=== PATIENT | female | born 1990 | race Caucasian/White ===

== ENCOUNTER 2017-06-06 21:00 | Emergency (ER) | payer OTHER ==
--- NOTE | 2017-06-06 22:23 | ERPHSYRPT ---
- History of Present Illness Time Seen by Provider: 06/06/17 21:30 Source: patient Exam Limitations: clinical condition Patient Subjective Stated Complaint: having headache x 4 weeks, Triage Nursing Assessment: gait is steady ambulates by self, skin warm dry and intact, pulses equal bilateral radus, pupils perrla3, and tracking well, no other complaints noted no loss of consciousness, no falls or trauma Physician History: PATIENT WITH A HISTORY OF SUBSTANCE ABUSE RECENTLY HAD SUBOXONE SWITCHED TO BUPRENORHINE 3 DAYS AGO AND NOW HAS DIZZINESS, DENIES HEADACHE PALPITATIONS, NAUSEA OR EMESIS. LAST MENSTRUAL PERIOD 04/17/17 RECENTLY DIAGNOSED WITH , DENIES ABDOMINAL PAIN, VAGINAL BLEEDING. Timing/Duration: today Severity: mild Associated Symptoms: denies symptoms Allergies/Adverse Reactions: No Known Drug Allergies Allergy (Verified 07/13/16 00:54) Home Medications: Buprenorphine HCl 1 tab SL BID 06/06/17 [History] Hx Tetanus, Diphtheria Vaccination/Date Given: Yes Hx Influenza Vaccination/Date Given: No Hx Pneumococcal Vaccination/Date Given: No Immunizations Up to Date: Yes - Review of Systems Constitutional: No Fever, No Chills Eyes: No Symptoms Ears, Nose, & Throat: No Symptoms Respiratory: No Symptoms, No Cough, No Dyspnea Cardiac: No Symptoms, No Chest Pain, No Edema, No Syncope Abdominal/Gastrointestinal: No Symptoms, No Abdominal Pain, No Nausea, No Vomiting, No Diarrhea Genitourinary Symptoms: Incontinence, No Dysuria Musculoskeletal: No Symptoms, No Back Pain, No Neck Pain Skin: No Rash Neurological: No Dizziness, No Focal Weakness, No Sensory Changes Psychological: No Symptoms Endocrine: No Symptoms All Other Systems: Reviewed and Negative - Past Medical History Pertinent Past Medical History: No Neurological History: Migraines ENT History: No Pertinent History Cardiac History: No Pertinent History Respiratory History: No Pertinent History Endocrine Medical History: Diabetes Type II Musculoskeletal History: No Pertinent History GI Medical History: No Pertinent History History: No Pertinent History Psycho-Social History: No Pertinent History Female Reproductive Disorders: No Pertinent History - Past Surgical History Past Surgical History: No Neuro Surgical History: No Pertinent History Cardiac: No Pertinent History Respiratory: No Pertinent History Gastrointestinal: No Pertinent History Genitourinary: No Pertinent History Musculoskeletal: No Pertinent History Female Surgical History: No Pertinent History - Social History Smoking Status: Never smoker How long have you smoked: 10 Exposure to second hand smoke: Yes Drug Use: none Patient Lives Alone: No Significant Family History: no pertinent family hx - Female History Hx Last Menstrual Period: 04/12/17 - Nursing Vital Signs Nursing Vital Signs: Initial Vital Signs Temperature 98.0 F 06/06/17 21:21 Pulse Rate 85 06/06/17 21:21 Respiratory Rate 18 06/06/17 21:21 Blood Pressure 127/79 06/06/17 21:21 O2 Sat by Pulse Oximetry 99 06/06/17 21:21 Pain Scale Pain Intensity 0 - Physical Exam General Appearance: no apparent distress, alert Eye Exam: PERRL/EOMI, eyes nml inspection Ears, Nose, Throat Exam: normal ENT inspection, TMs normal, pharynx normal, moist mucous membranes Neck Exam: normal inspection, non-tender, supple, full range of motion Respiratory Exam: normal breath sounds, lungs clear, No respiratory distress Cardiovascular Exam: regular rate/rhythm, normal heart sounds, normal peripheral pulses Gastrointestinal/Abdomen Exam: soft, normal bowel sounds, No tenderness, No mass Back Exam: normal inspection, normal range of motion, No CVA tenderness, No vertebral tenderness Extremity Exam: normal inspection, normal range of motion, pelvis stable Neurologic Exam: alert, oriented x 3, cooperative, normal mood/affect, nml cerebellar function, nml station & gait, sensation nml, No motor deficits Skin Exam: normal color, warm, dry, No rash Lymphatic Exam: No adenopathy SpO2 Interpretation: normal SpO2: 100 Oxygen Delivery: Room Air - Course EKG Interpreted by Me: RATE, Sinus Rhythm, NORMAL AXIS Ordered Tests: Active Orders 24 hr Category Date Time Status Clean Catch Urine Specimen STAT Care 06/06/17 22:11 Active EKG-ER Only STAT Care 06/06/17 22:10 Active BMP Stat Lab 06/06/17 22:25 Results CBC W DIFF Stat Lab 06/06/17 22:25 Completed HCG,QUALITATIVE URINE Stat Lab 06/06/17 22:30 Completed UA W/ MICROSCOPIC Stat Lab 06/06/17 22:25 Completed Lab/Rad Data: Laboratory Result Diagrams 06/06/17 22:25 06/06/17 22:25 Laboratory Results 06/06/17 06/06/17 06/06/17 Range/Units 22:30 22:25 22:25 WBC (4.0-10.5) K/mm3 RBC (4.1-5.4) M/mm3 Hgb (12.0-16.0) gm/dl Hct (35-47) % MCV (78-100) fl MCH (26-32) pg MCHC (32-36) g/dl RDW (11.5-14.0) % Plt Count (150-450) K/mm3 MPV (6-9.5) fl Gran % (36.0-66.0) % Lymphocytes % (24.0-44.0) % Monocytes % (0.0-12.0) % Eosinophils % (0.00-5.0) % Basophils % (0.0-0.4) % Basophils # (0-0.4) Sodium 136 (136-145) mEq/L Potassium 4.7 (3.5-5.1) mEq/L Chloride 102 (98-107) mEq/L Carbon Dioxide 29.2 (21-32) mEq/L Anion Gap 9.1 (5-15) MEQ/L BUN Pending Creatinine 0.75 (0.55-1.30) mg/dl Estimated GFR > 60 ML/MIN Glucose 107 (70-110) MG/DL Calcium 9.0 (8.5-10.1) mg/dL Ur Collection Type CLEAN CATCH Urine Color YELLOW (YELLOW) Urine Appearance CLEAR (CLEAR) Urine pH 5.0 (5-6) Ur Specific Coldiron 1.025 (1.005-1.025) Urine Protein NEGATIVE (Negative) Urine Ketones NEGATIVE (NEGATIVE) Urine Blood NEGATIVE (0-5) Onur/ul Urine Nitrite POSITIVE (NEGATIVE) Urine Bilirubin NEGATIVE (NEGATIVE) Urine Urobilinogen NORMAL (0-1) mg/dL Ur Leukocyte Esterase NEGATIVE (NEGATIVE) Urine Microscopic WBC 2-5 (0-5) /HPF Ur Epithelial Cells FEW (FEW) /HPF Urine Bacteria MODERATE (NEGATIVE) /HPF Urine Glucose NEGATIVE (NEGATIVE) mg/dL Urine HCG, Qual POSITIVE (Negative) Specimen Received 06/06/17222906/06/17 Range/Units 22:25 WBC 8.4 (4.0-10.5) K/mm3 RBC 4.34 (4.1-5.4) M/mm3 Hgb 13.0 (12.0-16.0) gm/dl Hct 39.5 (35-47) % MCV 91.0 (78-100) fl MCH 30.0 (26-32) pg MCHC 32.9 (32-36) g/dl RDW 14.0 (11.5-14.0) % Plt Count 297 (150-450) K/mm3 MPV 10.0 H (6-9.5) fl Gran % 46.1 (36.0-66.0) % Lymphocytes % 43.9 (24.0-44.0) % Monocytes % 4.0 (0.0-12.0) % Eosinophils % 5.5 H (0.00-5.0) % Basophils % 0.5 (0.0-0.4) % Basophils # 0.04 (0-0.4) Sodium (136-145) mEq/L Potassium (3.5-5.1) mEq/L Chloride (98-107) mEq/L Carbon Dioxide (21-32) mEq/L Anion Gap (5-15) MEQ/L BUN Creatinine (0.55-1.30) mg/dl Estimated GFR ML/MIN Glucose (70-110) MG/DL Calcium (8.5-10.1) mg/dL Ur Collection Type Urine Color (YELLOW) Urine Appearance (CLEAR) Urine pH (5-6) Ur Specific Coldiron (1.005-1.025) Urine Protein (Negative) Urine Ketones (NEGATIVE) Urine Blood (0-5) Onur/ul Urine Nitrite (NEGATIVE) Urine Bilirubin (NEGATIVE) Urine Urobilinogen (0-1) mg/dL Ur Leukocyte Esterase (NEGATIVE) Urine Microscopic WBC (0-5) /HPF Ur Epithelial Cells (FEW) /HPF Urine Bacteria (NEGATIVE) /HPF Urine Glucose (NEGATIVE) mg/dL Urine HCG, Qual (Negative) Specimen Received - Progress Counseled pt/family regarding: diagnosis, need for follow-up - Departure Time of Disposition: 23:20 Departure Disposition: Home Clinical Impression: VERTIGO, Condition: Stable Critical Care Time: No Referrals: ADAM MAR [Primary Care Provider] - Additional Instructions: CONSULT YOUR PRIMARY CARE PROVIDER CONCERNING SYMPTOMS OF DIZZINESS AFTER CHANGING MEDICATIONS SUBOXONE TO BUPROMORPHINE..
[2017-06-06 22:35] LABS: BASOPHIL % 0.5 % (0.0-0.4); Eosinophil % 5.5 % (0.00-5.0); Granulocytes % 46.1 % (36.0-66.0); Lymphocytes % 43.9 % (24.0-44.0); Platelet Count 297 K/mm3 (150-450); Red Blood Count 4.34 M/mm3 (4.1-5.4); White Blood Count 8.4 K/mm3 (4.0-10.5)
[2017-06-06 22:54] LABS: Bilirubin NEGATIVE (NEGATIVE); Blood NEGATIVE Ery/ul (0-5); Collection Type CLEAN CATCH; Glucose NEGATIVE (NEGATIVE); Leukocyte Esterase NEGATIVE (NEGATIVE)
[2017-06-06 22:55] LABS: Bacteria MODERATE /HPF (NEGATIVE); COMPLETE URINE MICROSCOPIC? YES; Epithelial Cells FEW /HPF (FEW)
[2017-06-06 23:00] LABS: ANION GAP 9.1 MEQ/L (5-15); CHLORIDE 102 mEq/L (98-107); Carbon Dioxide 29.2 mEq/L (21-32); Glucose 107 MG/DL (70-110); Potassium 4.7 mEq/L (3.5-5.1); SODIUM 136 mEq/L (136-145)
[2017-06-06 23:28] LABS: BLOOD UREA NITROGEN 13 mg/dL (9-20)
[2017-06-06 23:33] VITALS: BP 125/61; PULSE 95; O2SAT 97
== END 2017-06-06 23:34 | disposition home or self-care (01) ==
LOC: ED 21:00
DX: O26.899 Other specified pregnancy related conditions, unspecified trimester (principal); R42 Dizziness and giddiness
CPT/HCPCS: 36415; 80048; 81000; 84703; 85025; 93005; 99282; 99283

== ENCOUNTER 2020-02-14 21:25 | Emergency (ER) | payer BC, OTHER ==
[2020-02-14 21:33] VITALS: O2SAT 98
--- NOTE | 2020-02-14 21:38 | ERPHSYRPT ---
- History of Present Illness Time Seen by Provider: 02/14/20 21:38 Source: patient Exam Limitations: no limitations Physician History: This is a 29-year-old obese white female who is on methadone for drug rehabilitation and presents with concerns that she might have high blood pressure. Patient was seen at her dentist office and her dental appointment was canceled because she had a systolic blood pressure of 150 and a diastolic pressure of over 100. Patient was asymptomatic. Patient went home and took her own blood pressure 2 times with a home blood pressure cuff. She stated that both of those readings showed a systolic blood pressure of 80. Again, she had n o symptoms. She has no visual changes she has no headache she has no chest pain she is not short of breath. Patient presents to the emergency department to have her blood pressure evaluated. Timing/Duration: today Severity: mild Modifying Factors: Improves With: nothing Associated Symptoms: denies symptoms Allergies/Adverse Reactions: No Known Drug Allergies Allergy (Verified 02/14/20 21:39) Home Medications: Methadone HCl 80 mg PO DAILY 02/14/20 [History] Hx Tetanus, Diphtheria Vaccination/Date Given: Yes Hx Influenza Vaccination/Date Given: No Hx Pneumococcal Vaccination/Date Given: No Travel Risk - International Travel Have you traveled outside of the country in past 3 weeks: No - Coronavirus Screening Are you exhibiting any of the following symptoms?: No Close contact with a COVID-19 positive Pt in past 14-21 Days: No - Review of Systems Constitutional: No Symptoms Eyes: No Symptoms Ears, Nose, & Throat: No Symptoms Respiratory: No Symptoms Cardiac: No Symptoms Abdominal/Gastrointestinal: No Symptoms Genitourinary Symptoms: No Symptoms Musculoskeletal: No Symptoms Skin: No Symptoms Neurological: No Symptoms Psychological: No Symptoms Endocrine: No Symptoms Hematologic/Lymphatic: No Symptoms Immunological/Allergic: No Symptoms All Other Systems: Reviewed and Negative - Past Medical History Pertinent Past Medical History: No Neurological History: Migraines ENT History: No Pertinent History Cardiac History: No Pertinent History Respiratory History: No Pertinent History Endocrine Medical History: Diabetes Type II Musculoskeletal History: No Pertinent History GI Medical History: No Pertinent History History: No Pertinent History Psycho-Social History: No Pertinent History Female Reproductive Disorders: No Pertinent History - Past Surgical History Past Surgical History: No Neuro Surgical History: No Pertinent History Cardiac: No Pertinent History Respiratory: No Pertinent History Gastrointestinal: No Pertinent History Genitourinary: No Pertinent History Musculoskeletal: No Pertinent History Female Surgical History: No Pertinent History - Social History Smoking Status: Never smoker How long have you smoked: 10 Exposure to second hand smoke: Yes Drug Use: none Patient Lives Alone: No Significant Family History: no pertinent family hx - Nursing Vital Signs Nursing Vital Signs: Initial Vital Signs Temperature 98.2 F 02/14/20 21:32 Pulse Rate 77 02/14/20 21:32 Respiratory Rate 18 02/14/20 21:32 Blood Pressure 140/80 02/14/20 21:32 O2 Sat by Pulse Oximetry 98 02/14/20 21:32 Pain Scale Pain Intensity 3 - Physical Exam General Appearance: no apparent distress, alert, anxiety Eye Exam: PERRL/EOMI, eyes nml inspection Ears, Nose, Throat Exam: normal ENT inspection, moist mucous membranes Neck Exam: normal inspection, non-tender, supple, full range of motion Respiratory Exam: normal breath sounds, lungs clear, airway intact, No chest tenderness, No respiratory distress Cardiovascular Exam: regular rate/rhythm, normal heart sounds, normal peripheral pulses Gastrointestinal/Abdomen Exam: soft, normal bowel sounds, No tenderness Pelvic Exam: not done Rectal Exam: not done Back Exam: normal inspection, normal range of motion, No CVA tenderness, No vertebral tenderness Extremity Exam: normal inspection, normal range of motion, pelvis stable Neurologic Exam: alert, oriented x 3, cooperative, financial associate II-XII nml as tested, normal mood/affect, nml cerebellar function, nml station & gait, sensation nml Skin Exam: normal color, warm, dry Lymphatic Exam: No adenopathy SpO2 Interpretation: normal SpO2: 98 O2 Delivery: Room Air - Course Nursing assessment & vital signs reviewed: Yes - Progress Progress: unchanged Counseled pt/family regarding: diagnosis, need for follow-up, rad results - Departure Departure Disposition: Home Clinical Impression: Mild hypertension Condition: Stable Critical Care Time: No Referrals: ADAM MAR [ACTIVE STAFF] - Additional Instructions: Monitor your blood pressure 3 times a day for the next 4 days at home. Follow- up with a primary care physician for further evaluation and management of your medical conditions and concerns.
[2020-02-14 22:52] VITALS: BP 146/71; PULSE 74
== END 2020-02-14 22:53 | disposition home or self-care (01) ==
LOC: ED 21:25
DX: I10 Essential (primary) hypertension (principal); E11.9 Type 2 diabetes mellitus without complications
CPT/HCPCS: 99283

== ENCOUNTER 2021-11-06 09:45 | Day surgery (SDC) | payer OTHER ==
[2021-11-06] MEDS ORDERED: Lactated Ringers 1,000 ML IV SCH (10:00)
[2021-11-06] MEDS ORDERED: CEFAZOLIN 2 GM-D5W BAG** 2 GM/50 ML ML IV SCH (10:00)
[2021-11-06] MEDS ORDERED: CEFAZOLIN 2 GM-D5W BAG** 2 GM/50 ML ML IV ONE (10:12)
[2021-11-06] MEDS ORDERED: Lactated Ringers 1,000 ML IV ONE ×2 (10:12→10:53)
[2021-11-06] MEDS ORDERED: BUPIVACAINE 0.5% VIAL IJ ONE (10:53)
[2021-11-06] MEDS ORDERED: XYLOCAINE 1% HCL 20 ML MDV ONE (10:53)
[2021-11-06] MEDS ORDERED: Zofran 4 MG/2 ML VIAL ONE (12:09)
[2021-11-06] MEDS ORDERED: Xylocaine-Mpf 2% 5 Ml Vial ONE (12:09)
[2021-11-06] MEDS ORDERED: Versed 2 MG/2 ML Injection ONE (12:09)
[2021-11-06] MEDS ORDERED: DIPRIVAN 200 MG/20 ML IV ONE (12:09)
[2021-11-06] MEDS ORDERED: NEURONTIN 300 MG PO SCH (12:15)
[2021-11-06] MEDS ORDERED: SUBLIMAZE 100 MCG/2 ML ONE (12:18)
[2021-11-06] MEDS ORDERED: Ketamine HCl 50 MG/ML ONE (12:20)
[2021-11-06] MEDS ORDERED: OFIRMEV 100 ML IV ONE (12:31)
[2021-11-06] MEDS ORDERED: Pre-Attached Lta Kit TP ONE (12:31)
[2021-11-06] MEDS ORDERED: Quelicin Fliptop 200 MG/10 ML ONE (12:54)
[2021-11-06] MEDS ORDERED: PHENYLEPHRINE HCL ONE (13:03)
[2021-11-06] MEDS ORDERED: Xopenex 1.25 MG/0.5 ML UD NEBULE IH ONE (13:30)
--- NOTE | 2021-11-06 15:34 | OP ---
SURGERY DATE/TIME: 11/06/2021 1226 PREOPERATIVE DIAGNOSES: 1) Plantar fasciitis to the left foot. 2) Pain left foot. 3) Equinus contracture of the left ankle. POSTOPERATIVE DIAGNOSES: 1) Plantar fasciitis to the left foot. 2) Pain left foot. 3) Equinus contracture of the left ankle. PROCEDURE: Endoscopic plantar fasciectomy. SURGEON: Barry Lugo DPM. MANAGER OF CASE: None. ANESTHESIA: General plus postoperative local block. See injectables for details. HEMOSTASIS: Ankle tourniquet set to 250 mm of Mercury for 11 minutes total tourniquet time. ESTIMATED BLOOD LOSS: Less than 3 cc. MATERIALS: 4-0 Monocryl, 3-0 Nylon. INJECTABLES: 20 cc of 1:1 mixture of 1% lidocaine plain and 0.5% bupivacaine plain injected in posterior tibial nerve block. INDICATION FOR SURGERY: Fide is a very pleasant 31-year-old female who presented to my office for multiple rounds of treatment of plantar fasciitis. She has been dealing with this issue for over three years now and has failed all provided care at this time. She has gone physical therapy and provided injections and changed shoe wear as well as use of orthotics in order to alleviate the pain that she had been experiencing. The patient has exhausted all conservative measures at this time and wishes to proceed with surgical intervention. The patient understands all the risks, complications and benefits of surgical intervention including but not limited to delayed skin healing, nonskin healing, possibility of full plantar fascia rupture, possibility of postoperative pain prolonged more so than expected postoperative period and possible painful scar. The patient understands all of this and wishes to proceed. No guarantees were provided as to the outcome. Plenty of time was allowed for the patient to ask questions which were answered to the patient's apparent satisfaction. It is with that we decided to proceed. DESCRIPTION OF PROCEDURE AND FINDINGS: The patient is brought into the OR and placed on the OR table in the supine position. At this time general anesthesia was administered and the left lower extremity was prepped and draped in the typical sterile fashion. At this time a well-padded ankle tourniquet was applied to the left ankle and the tourniquet was set to 250 mm of Mercury. An Esmarch was utilized to exsanguinate the foot and the tourniquet was inflated at this time. A ruler was utilized to measure off 2 cm from the weightbearing surface of the instep at the medial aspect of the left foot. At this time linear incision was made perpendicular to the longitudinal aspect of the plantar fascia more towards the medial aspect of the foot this was carried down using a combination of blunt and sharp dissection to the plantar aspect of the foot being careful not to damage any neurovascular structures along the way. Once deepened the plantar fascia was identified. At this time a 15 blade was utilized to resect the medial band as well as the entire portion of the central band of the plantar fascia. The lateral band plantar fascia was inspected and protected throughout the procedure. At this time copious amount of sterile saline was utilized to flush the surgical site. A 4-0 Monocryl was utilized in a buried-type stitch fashion to coapt the subcutaneous skin edges and a 3-0 Nylon was utilized in a horizontal mattress-type fashion to vijay the skin edges and coapt the surgical incision. Dressing consisting of Betadine, Adaptic, 4x4, Kerlix and NIHARIKA was applied to the left lower extremity. The patient was placed in a postoperative controlled ankle motion walker. The patient was then reversed from anesthesia and sent to the postoperative anesthesia care unit with vital signs stable and vascular status intact. Total tourniquet time was 11 minutes. The patient handled the procedure without complication. Postoperative orders as indicated in the patient's discharge chart.
[2021-11-06 15:48] VITALS: O2SAT 95
[2021-11-06 15:51] VITALS: BP 140/81; PULSE 100
== END 2021-11-06 15:40 | disposition home or self-care (01) ==
LOC: SDC 09:45
PROVIDERS: ATTEND Podiatrist Foot & Ankle Surgery
DX: M72.2 Plantar fascial fibromatosis (principal); M24.572 Contracture, left ankle; M79.672 Pain in left foot; E11.9 Type 2 diabetes mellitus without complications; Z79.899 Other long term (current) drug therapy
CPT/HCPCS: 28060; 82947; 84703; 94640; J0330; J0690; J2250; J2370; J2405; J2704; J3010; A9270-GY

== ENCOUNTER 2023-08-22 07:37 | Emergency (ER) | payer OTHER ==
[2023-08-22 07:46] VITALS: RESP 18; TEMP 98.4
--- NOTE | 2023-08-22 07:52 | ERPHSYRPT ---
- History of Present Illness Source: patient Exam Limitations: no limitations Patient Subjective Stated Complaint: Cough- FLU + Triage Nursing Assessment: ff Physician History: The patient is a 33-year-old who does smoke. She was diagnosed with flu a 2 days ago. She is on a course of steroids. She felt like she was a little short of breath. Her sats were reading from her neighbors pulse ox is low. Her sats here are fine. She has had some fever chills. She has not had a productive cough. They did not do a chest x-ray on her assessment. Cough Quality/Degree: moderate, dry cough Allergies/Adverse Reactions: No Known Drug Allergies Allergy (Verified 08/22/23 07:40) Home Medications: Dapagliflozin Propanediol [Farxiga] 5 mg PO DAILY 11/05/21 [History] Losartan Potassium [Cozaar] 25 mg PO DAILY 11/05/21 [History] Metformin HCl 500 mg [Glucophage 500 MG] 500 mg PO TID 11/05/21 [History] Methadone HCl 5 mg PO DAILY 11/05/21 [History] Semaglutide [Ozempic] 0.25 mg SQ WEEKLY 11/05/21 [History] Hx Tetanus, Diphtheria Vaccination/Date Given: Yes Hx Influenza Vaccination/Date Given: No Hx Pneumococcal Vaccination/Date Given: No Immunizations Up to Date: Yes Travel Risk - International Travel Have you traveled outside of the country in past 3 weeks: No - Coronavirus Screening Are you exhibiting any of the following symptoms?: No Close contact with a COVID-19 positive Pt in past 14-21 Days: No - Vaccine Status Have you recieved a Covid-19 vaccination: No - Review of Systems Constitutional: Fever, Chills, Fatigue Eyes: No Symptoms Ears, Nose, & Throat: No Symptoms Respiratory: Cough, Dyspnea Cardiac: No Chest Pain, No Edema, No Syncope Abdominal/Gastrointestinal: No Abdominal Pain, No Nausea, No Vomiting, No Diarrhea Genitourinary Symptoms: No Dysuria Musculoskeletal: No Back Pain, No Neck Pain Skin: No Rash Neurological: No Dizziness, No Focal Weakness, No Sensory Changes Psychological: No Symptoms Endocrine: No Symptoms All Other Systems: Reviewed and Negative - Past Medical History Pertinent Past Medical History: No Neurological History: No Pertinent History ENT History: No Pertinent History Cardiac History: Hypertension Respiratory History: No Pertinent History Endocrine Medical History: Diabetes Type II Musculoskeletal History: No Pertinent History GI Medical History: GERD History: No Pertinent History Psycho-Social History: No Pertinent History Female Reproductive Disorders: No Pertinent History Other Medical History: - PATIENT REPORTS HAS BLOOD CLOT "ON STOMACH" FROM AND NOT GOING AWAY - SX WAS 3 YEARS AGO. - Past Surgical History Past Surgical History: Yes Neuro Surgical History: No Pertinent History Cardiac: No Pertinent History Respiratory: No Pertinent History Gastrointestinal: No Pertinent History Genitourinary: No Pertinent History Musculoskeletal: No Pertinent History Female Surgical History: Section - Social History Smoking Status: Current every day smoker How long have you smoked: age 16 Exposure to second hand smoke: Yes Drug Use: none Patient Lives Alone: No Significant Family History: no pertinent family hx - Female History Hx Last Menstrual Period: 2 weeks ago Hx Now: No - Nursing Vital Signs Nursing Vital Signs: Initial Vital Signs Temperature 98.4 F 08/22/23 07:41 Pulse Rate 77 08/22/23 07:41 Respiratory Rate 18 08/22/23 07:41 Blood Pressure 108/64 08/22/23 07:41 O2 Sat by Pulse Oximetry 96 08/22/23 07:41 Pain Scale Pain Intensity 0 - Physical Exam General Appearance: no apparent distress, alert Eye Exam: PERRL/EOMI, eyes nml inspection Ears, Nose, Throat Exam: normal ENT inspection, TMs normal, pharynx normal, moist mucous membranes Neck Exam: normal inspection, non-tender, supple, full range of motion Respiratory Exam: normal breath sounds, lungs clear, No respiratory distress Cardiovascular Exam: regular rate/rhythm, normal heart sounds Gastrointestinal/Abdomen Exam: soft, No tenderness Back Exam: normal inspection, No CVA tenderness, No vertebral tenderness Extremity Exam: normal inspection, normal range of motion Neurologic Exam: alert, oriented x 3, cooperative, normal mood/affect, sensation nml, No motor deficits Skin Exam: normal color, warm, dry, No rash Lymphatic Exam: No adenopathy SpO2 Interpretation: normal SpO2: 97 O2 Delivery: Room Air - Course Nursing assessment & vital signs reviewed: Yes Ordered Tests: Active Orders 24 hr Category Date Time Status CHEST 1 VIEW (PORTABLE) Stat Exams 08/22/23 07:46 Completed Lab/Rad Data: Thank you for choosing our Emergency Department for your healthcare! Please take your medicines prescribed as directed and be assured that you follow up with the physician provided or your PCP in the next 1-2 days to assure you are improving. All medical problems cannot be reasonably diagnosed in your ED visit today. Return for any changes or concerns, including if your condition does not improve or you are unable to obtain follow-up. Some final results, including radiology reports, do not return the same day, but are available on the patient portal or can be obtained through your PCP. - Progress Progress Note: 08/22/23 07:49 This patient presents with symptoms suspicious for likely viral upper respiratory infection/ flu A . Based on history and physical doubt sinusitis. Do not suspect underlying cardiopulmonary process. I considered, but think unlikely, dangerous causes of this patients symptoms to include ACS, CHF or COPD exacerbations, , pneumothorax. Patient is nontoxic appearing and not in need of emergent medical intervention The patient once again presents with flu a. She has had a cough and shortness of breath. Sats and vital signs are unremarkable. The patient will get a chest x-ray to evaluate for bacterial/lobar pneumonia. If the x-ray is unremarkable, Patient will be continued on her current therapy of steroids. 08/22/23 08:48 The patient has a questionable finding on x-ray. The patient will be treated for pneumonia. This could be changes from the flu. The patient is not hypoxic. The patient's had symptoms for over 48 hours. She is outside the window for Tamiflu. No signs of hypoxia or respiratory distress or failure Medical Desision Making - Diagnostic Testing Diagnostic test were ordered, analyzed, and reviewed by me: Yes Radiological Interpretation: Reviewed by me - Departure Departure Disposition: Home Clinical Impression: Flu, Dyspnea, Pneumonia Condition: Stable Critical Care Time: No Referrals: ANN DUKES [Primary Care Provider] - Follow up/PCP as directed Instructions: Flu, Cough, Adult (DC), Pneumonia, Adult (DC) Additional Instructions: Thank you for choosing our Emergency Department for your healthcare! Please take your medicines prescribed as directed and be assured that you follow up with the physician provided or your PCP in the next 1-2 days to assure you are improving. All medical problems cannot be reasonably diagnosed in your ED visit today. Return for any changes or concerns, including if your condition does not improve or you are unable to obtain follow-up. Some final results, including radiology reports, do not return the same day, but are available on the patient portal or can be obtained through your PCP. Continue your steroids. You may have pneumonia. We will start you on antibiotics Prescriptions: Azithromycin 250 mg [Zithromax 250 MG TABLET] 250 mg PO ZPACK #6 tablet
--- NOTE | 2023-08-22 08:46 | XRAY ---
Indication: Cough. Influenza. Comparison: None Portable apical lordotic chest demonstrates mild left perihilar interstitial alveolar opacities, probably pneumonia in right clinical setting. Remaining heart, right lung, and bony thorax normal.
[2023-08-22 08:55] VITALS: BP 98/61; PULSE 76; O2SAT 94
== END 2023-08-22 09:13 | disposition home or self-care (01) ==
LOC: ED 07:37
DX: J10.00 Influenza due to other identified influenza virus with unspecified type of pneumonia (principal); R06.00 Dyspnea, unspecified; I10 Essential (primary) hypertension; E11.9 Type 2 diabetes mellitus without complications; Z79.84 Long term (current) use of oral hypoglycemic drugs; Z79.85 Long-term (current) use of injectable non-insulin antidiabetic drugs; Z79.891 Long term (current) use of opiate analgesic; Z79.899 Other long term (current) drug therapy; Z28.310 Unvaccinated for COVID-19; Z72.0 Tobacco use
CPT/HCPCS: 71045; 99282

== ENCOUNTER 2024-02-20 16:35 | Emergency (ER) | payer OTHER ==
[2024-02-20 16:56] VITALS: TEMP 96.8; O2SAT 99
--- NOTE | 2024-02-20 17:00 | ERPHSYRPT ---
- History of Present Illness Time Seen by Provider: 02/20/24 17:00 Source: patient Exam Limitations: no limitations Patient Subjective Stated Complaint: Headache Triage Nursing Assessment: Patient ambulated back to ED and transferred self to bed. Patient A+O X3. Patient's skin pink, warm and dry. Patient complains of headache for 1 1/2 week to the top of head. Patient complains of occasional nausea and light sensitive. Patient complains of pain 7/10. Physician History: This is a morbidly obese 33-year-old white female patient who has had symptoms of headache, mild intermittent nausea and mild intermittent light sensitivity over the last 10 days. Patient does not have nausea or light sensitivity at this time. Patient denies neck pain. Patient denies vomiting. Patient denies diarrhea. Patient denies cough. Patient denies shortness of breath. Patient denies sore throat. Patient denies chest pain. No other individuals that she is in contact with have similar symptoms. Patient states that the pain is on the top of her head and it is a mild ache. Patient has history of hypertension, is taking methadone and has a history of diabetes Timing/Duration: day(s) (10), intermittent Severity of Pain-Max: mild Severity of Pain-Current: mild Recent Head Trauma: no recent headache/trauma Modifying Factors: Improves With: other (Nothing today) Associated Symptoms: denies symptoms (No symptoms today but has had intermittent sensitivity to light and nausea.), No neck pain, No stiff neck Previous symptoms: no prior history, recently seen Allergies/Adverse Reactions: No Known Drug Allergies Allergy (Verified 02/20/24 16:46) Home Medications: Dapagliflozin Propanediol [Farxiga] 5 mg PO DAILY 11/05/21 [History] Losartan Potassium [Cozaar] 25 mg PO DAILY 11/05/21 [History] Metformin HCl 500 mg [Glucophage 500 MG] 500 mg PO DAILY 11/05/21 [History] Methadone HCl 5 mg PO DAILY 11/05/21 [History] Semaglutide [Ozempic] 1 mg SQ WEEKLY 11/05/21 [History] Hx Tetanus, Diphtheria Vaccination/Date Given: Yes Hx Influenza Vaccination/Date Given: No Hx Pneumococcal Vaccination/Date Given: No Immunizations Up to Date: Yes Travel Risk - International Travel Have you traveled outside of the country in past 3 weeks: No - Emerging Infectious Disease Are you exhibiting symptoms associated with any current EIDs: No - Review of Systems Constitutional: No Symptoms Eyes: No Symptoms Ears, Nose, & Throat: No Symptoms Respiratory: No Symptoms Cardiac: No Symptoms Abdominal/Gastrointestinal: No Symptoms Genitourinary Symptoms: No Symptoms Musculoskeletal: No Symptoms Skin: No Symptoms Neurological: Headache Psychological: No Symptoms Endocrine: No Symptoms Hematologic/Lymphatic: No Symptoms Immunological/Allergic: No Symptoms All Other Systems: Reviewed and Negative - Past Medical History Pertinent Past Medical History: Yes Neurological History: No Pertinent History ENT History: No Pertinent History Cardiac History: Hypertension Respiratory History: No Pertinent History Endocrine Medical History: Diabetes Type II Musculoskeletal History: No Pertinent History GI Medical History: GERD History: No Pertinent History Psycho-Social History: No Pertinent History Female Reproductive Disorders: No Pertinent History Other Medical History: - PATIENT REPORTS HAS BLOOD CLOT "ON STOMACH" FROM AND NOT GOING AWAY - SX WAS 3 YEARS AGO. - Past Surgical History Past Surgical History: Yes Neuro Surgical History: No Pertinent History Cardiac: No Pertinent History Respiratory: No Pertinent History Gastrointestinal: No Pertinent History Genitourinary: No Pertinent History Musculoskeletal: No Pertinent History Female Surgical History: Section Significant Family History: no pertinent family hx - Female History Hx Last Menstrual Period: currently Hx Now: No - Social History Smoking Status: Current every day smoker How long have you smoked: age 16 Exposure to second hand smoke: Yes Drug Use: none Patient Lives Alone: No - Social Determinants of Health Will the patient participate in the screening: Declined to provide - Nursing Vital Signs Nursing Vital Signs: Initial Vital Signs Temperature 96.8 F 02/20/24 16:48 Pulse Rate 87 02/20/24 16:48 Respiratory Rate 18 02/20/24 16:48 Blood Pressure 133/63 02/20/24 16:48 O2 Sat by Pulse Oximetry 99 02/20/24 16:48 Pain Scale Pain Intensity 7 - Physical Exam General Appearance: no apparent distress, alert, anxiety, obese Eye Exam: PERRL/EOMI, eyes nml inspection Ears, Nose, Throat Exam: normal ENT inspection, moist mucous membranes Neck Exam: normal inspection, non-tender, supple, full range of motion Respiratory Exam: normal breath sounds, lungs clear, airway intact, No chest tenderness, No respiratory distress Cardiovascular Exam: regular rate/rhythm, normal heart sounds, normal peripheral pulses Gastrointestinal/Abdominal Exam: soft, normal bowel sounds, No tenderness Back Exam: normal inspection, normal range of motion, No CVA tenderness, No vertebral tenderness Extremity Exam: normal inspection, normal range of motion, pelvis stable Mental Status Exam: alert, oriented x 3, cooperative, other (Patient is communicating and laughing.) wool puller Exam: normal hearing, normal speech, PERRL, tongue midline Coordination/Gait Exam: normal gait, normal cerebellar function Motor/Sensory Exam: no motor deficit, no sensory deficit Skin Exam: normal color, warm, dry Lymphatic Exam: No adenopathy SpO2 Interpretation: normal SpO2: 99 O2 Delivery: Room Air - Course Nursing assessment & vital signs reviewed: Yes Ordered Tests: Active Orders 24 hr Category Date Time Status HEAD WITHOUT CONTRAST [CT] Stat Exams 02/20/24 17:26 Taken BLOOD CULTURE Stat Lab 02/20/24 18:10 Received CBC W DIFF Stat Lab 02/20/24 18:05 Completed CMP Stat Lab 02/20/24 18:05 Completed MONO SCREEN Stat Lab 02/20/24 18:05 Completed UA W/RFX UR CULTURE Stat Lab 02/20/24 17:27 Completed Lab/Rad Data: Laboratory Result Diagrams 02/20/24 18:05 02/20/24 18:05 Laboratory Results 02/20/24 02/20/24 02/20/24 Range/Units 18:05 18:05 18:05 WBC 10.0 (3.98-10.04) x10^3/uL RBC 4.95 (3.93-5.22) x10^6/uL Hgb 14.5 (11.2-15.7) g/dL Hct 45.3 H (34.1-44.9) % MCV 91.5 (79.4-94.8) fL MCH 29.3 (25.6-32.2) pg MCHC 32.0 L (32.2-35.5) g/dL RDW 14.1 (11.7-14.4) % Plt Count 309 (182-369) x10^3/uL MPV 10.0 (9.4-12.3) fL Gran % 66.1 (34.0-71.1) % Immature Gran % (Auto) 0.4 (0.001-0.429) % Nucleat RBC Rel Count 0.0 (0.00-0.2) % Eos # (Auto) 0.15 (0.04-0.36) x10^3/uL Immature Gran # (Auto) 0.04 H (0.001-0.031) x10^3u/L Absolute Lymphs (auto) 2.81 (1.18-3.74) x10^3/uL Absolute Monos (auto) 0.36 (0.24-0.86) x10^3/uL Absolute Nucleated RBC 0.00 (0.00-0.012) x10^3u/L Lymphocytes % 28.1 (19.3-51.7) % Monocytes % 3.6 L (4.7-12.5) % Eosinophils % 1.5 (0.7-5.8) % Basophils % 0.3 (0.1-1.2) % Absolute Granulocytes 6.62 H (1.56-6.13) x10^3/uL Basophils # 0.03 (0.01-0.08) x10^3/uL Sodium 138 (135-145) mmol/L Potassium 4.0 (3.5-5.1) mmol/L Chloride 100 (98-107) mmol/L Carbon Dioxide 32 H (22-30) mmol/L Anion Gap 9.3 (5-15) MEQ/L BUN 8 (7-17) mg/dL Creatinine 0.71 (0.52-1.04) mg/dL Estimated GFR 115.1 ML/MIN Glucose 103 (74-106) mg/dL Calcium 9.0 (8.4-10.2) mg/dL Total Bilirubin 0.20 (0.2-1.3) mg/dL AST 21 (14-36) U/L ALT 19 (0-35) U/L Alkaline Phosphatase 98 (38-126) U/L Serum Total Protein 7.7 (6.3-8.2) g/dL Albumin 4.3 (3.5-5.0) g/dL Urine Color (Yellow) Urine Appearance (Clear) Urine pH (4.6-8.0) Ur Specific [place] (1.005-1.030) Urine Protein (Negative) Urine Glucose (UA) (Negative) mg/dL Urine Ketones (Negative) Urine Blood (Negative) Urine Nitrite (Negative) Urine Bilirubin (Negative) Urine Urobilinogen (0.2) mg/dL Ur Leukocyte Esterase (Negative) U Hyaline Cast (Auto) (0-2) /LPF Urine Microscopic RBC (0-5) /HPF Urine Microscopic WBC (0-5) /HPF Ur Epithelial Cells (None Seen) /HPF Urine Bacteria (None Seen) /HPF Urine Culture Reflexed (NO) Monoscreen POSITIVE A (NEGATIVE) 02/20/24 Range/Units 17:27 WBC (3.98-10.04) x10^3/uL RBC (3.93-5.22) x10^6/uL Hgb (11.2-15.7) g/dL Hct (34.1-44.9) % MCV (79.4-94.8) fL MCH (25.6-32.2) pg MCHC (32.2-35.5) g/dL RDW (11.7-14.4) % Plt Count (182-369) x10^3/uL MPV (9.4-12.3) fL Gran % (34.0-71.1) % Immature Gran % (Auto) (0.001-0.429) % Nucleat RBC Rel Count (0.00-0.2) % Eos # (Auto) (0.04-0.36) x10^3/uL Immature Gran # (Auto) (0.001-0.031) x10^3u/L Absolute Lymphs (auto) (1.18-3.74) x10^3/uL Absolute Monos (auto) (0.24-0.86) x10^3/uL Absolute Nucleated RBC (0.00-0.012) x10^3u/L Lymphocytes % (19.3-51.7) % Monocytes % (4.7-12.5) % Eosinophils % (0.7-5.8) % Basophils % (0.1-1.2) % Absolute Granulocytes (1.56-6.13) x10^3/uL Basophils # (0.01-0.08) x10^3/uL Sodium (135-145) mmol/L Potassium (3.5-5.1) mmol/L Chloride (98-107) mmol/L Carbon Dioxide (22-30) mmol/L Anion Gap (5-15) MEQ/L BUN (7-17) mg/dL Creatinine (0.52-1.04) mg/dL Estimated GFR ML/MIN Glucose (74-106) mg/dL Calcium (8.4-10.2) mg/dL Total Bilirubin (0.2-1.3) mg/dL AST (14-36) U/L ALT (0-35) U/L Alkaline Phosphatase (38-126) U/L Serum Total Protein (6.3-8.2) g/dL Albumin (3.5-5.0) g/dL Urine Color Yellow (Yellow) Urine Appearance Cloudy A (Clear) Urine pH 5.5 (4.6-8.0) Ur Specific [place] >=1.030 A (1.005-1.030) Urine Protein Negative (Negative) Urine Glucose (UA) >=1000 A (Negative) mg/dL Urine Ketones Negative (Negative) Urine Blood Large A (Negative) Urine Nitrite Negative (Negative) Urine Bilirubin Negative (Negative) Urine Urobilinogen 0.2 (0.2) mg/dL Ur Leukocyte Esterase Negative (Negative) U Hyaline Cast (Auto) NONE SEEN (0-2) /LPF Urine Microscopic RBC 51-100 A (0-5) /HPF Urine Microscopic WBC 3-5 (0-5) /HPF Ur Epithelial Cells Few (None Seen) /HPF Urine Bacteria None Seen (None Seen) /HPF Urine Culture Reflexed NO (NO) Monoscreen (NEGATIVE) - Progress Progress: improved, re-examined Air Movement: good Progress Note: 02/20/24 18:15 Medical decision making and the assignment of moderate complexity to this patient's medical issue today is based on review of the patient's past medical history, review the patient's medication list, review of patient drug allergy list, history present illness and physical findings on examination. The workup today includes CBC, CMP, urinalysis, viral swabs, monotest, group A strep test, CT scan of the head without contrast. Differential diagnosis includes but not limited to viral illness, strep pharyngitis, urinary tract infection, acute intracranial abnormality. 02/20/24 18:47 CT scan of head without contrast was interpreted by the radiologist and I reviewed the impression. The impression states normal CT scan of head without contrast. 02/20/24 18:53 I interpreted the patient's laboratory data results. The patient tested positive for mononucleosis. Blood Culture(s) Obtained: Yes Counseled pt/family regarding: lab results, diagnosis, need for follow-up, rad results Medical Desision Making - Diagnostic Testing Diagnostic test were ordered, analyzed, and reviewed by me: Yes Radiological Interpretation: Reviewed by me, Teleradiologist Report - Risk of complications Low Risk: Low risk of morbidity from additional dx testing or treatment - Departure Departure Disposition: Home Clinical Impression: Mononucleosis Condition: Stable Critical Care Time: No Referrals: ANN DUKES [Primary Care Provider] - Follow up/PCP as directed Additional Instructions: Drink plenty of clear liquids. Use Tylenol and ibuprofen for pain control. Call your primary care provider on 02/23/2024 to make arrangement for follow-up appointment to be seen in the next 5 to 7 days Prescriptions: Ondansetron ODT 4 MG [Zofran Odt 4 mg] 4 mg PO Q6H PRN PRN #10 tablet PRN Reason: Vomiting
[2024-02-20 17:39] LABS: Appearance Cloudy (Clear); Bacteria None Seen /HPF (None Seen); Bilirubin Negative (Negative); Blood Large (Negative); Epithelial Cells Few /HPF (None Seen); Glucose, Urine >=1000 mg/dL (Negative); Hyaline Casts NONE SEEN /LPF (0-2); Ketones Negative (Negative); Leukocyte Esterase Negative (Negative); Nitrite Negative (Negative); Ph 5.5 (4.6-8.0); Protein,Urine Dip Negative (Negative); RBC 51-100 /HPF (0-5); Specific Gravity >=1.030 (1.005-1.030); Urobilinogen 0.2 mg/dL (0.2)
[2024-02-20 17:44] LABS: ADD URINE CULTURE? NO (NO)
[2024-02-20 18:18] LABS: Absolute Neutrophil Ct (ANC) 6.62 x10^3/uL (1.56-6.13); BASOPHIL % 0.3 % (0.1-1.2); Basophil (Absolute #) 0.03 x10^3/uL (0.01-0.08); Eosinophil % 1.5 % (0.7-5.8); Eosinophil (Absolute #) 0.15 x10^3/uL (0.04-0.36); Hematocrit 45.3 % (34.1-44.9); Hemoglobin 14.5 g/dL (11.2-15.7); IMMATURE GRAN # 0.04 x10^3u/L (0.001-0.031); IMMATURE GRAN % 0.4 % (0.001-0.429); Lymphocyte (Absolute #) 2.81 x10^3/uL (1.18-3.74); Lymphocytes % 28.1 % (19.3-51.7); Mean Cell Volume 91.5 fL (79.4-94.8); Mean Corpuscular Hemoglobin 29.3 pg (25.6-32.2); Monocyte (Absolute #) 0.36 x10^3/uL (0.24-0.86); Monocytes % 3.6 % (4.7-12.5); Neutrophil % 66.1 % (34.0-71.1); Platelet Count 309 x10^3/uL (182-369); Red Blood Count 4.95 x10^6/uL (3.93-5.22); Red Cell Distribution Width 14.1 % (11.7-14.4)
[2024-02-20 18:32] LABS: ALBUMIN 4.3 g/dL (3.5-5.0); ANION GAP 9.3 MEQ/L (5-15); BILIRUBIN,TOTAL 0.2 mg/dL (0.2-1.3); Creatinine 1 0.71 mg/dL (0.52-1.04); EST GLOMERULAR FILTRATION RATE 115.1 ML/MIN; Total Protein 7.7 g/dL (6.3-8.2)
[2024-02-20 18:58] LABS: INFLUENZA A NEGATIVE (NEGATIVE); INFLUENZA B NEGATIVE (NEGATIVE); RESPIRATORY SYNCTIAL VIRUS NEGATIVE (NEGATIVE); SARS-CoV-2 Xpert Express NEGATIVE (NEGATIVE)
[2024-02-20 19:21] VITALS: BP 105/62; PULSE 92; RESP 16
--- NOTE | 2024-02-21 05:39 | XRAY ---
Indication: Headache 10 days. Multiple contiguous axial images obtained through the head without contrast. Comparison: November 28, 2014 Normal appearing brain parenchyma, ventricles, and bony calvarium. Visualized paranasal sinuses and mastoid air cells are clear. Impression: Continued normal CT head without contrast exam.
== END 2024-02-20 19:24 | disposition home or self-care (01) ==
LOC: ED 16:35
DX: B27.90 Infectious mononucleosis, unspecified without complication (principal); R51.9 Headache, unspecified; I10 Essential (primary) hypertension; E11.9 Type 2 diabetes mellitus without complications; Z79.891 Long term (current) use of opiate analgesic; Z79.84 Long term (current) use of oral hypoglycemic drugs; Z79.85 Long-term (current) use of injectable non-insulin antidiabetic drugs; Z79.899 Other long term (current) drug therapy; Z72.0 Tobacco use
CPT/HCPCS: 0241U; 36415; 70450; 80053; 81001; 85025; 86308; 87040; 87651; 99283

== ENCOUNTER 2024-10-25 12:44 | Emergency (ER) | payer OTHER ==
[2024-10-25 12:51] VITALS: RESP 18; TEMP 98.6; O2SAT 98
--- NOTE | 2024-10-25 13:10 | ERPHSYRPT ---
- History of Present Illness Time Seen by Provider: 10/25/24 13:00 Source: patient Exam Limitations: no limitations Patient Subjective Stated Complaint: patient dexcom sensor showing she was extremely ,ow in the 40's Triage Nursing Assessment: patietn alert nad oriented x3 , pupils perrla, gait is steady, we did manual glucose stick and patient is reading 151 on our meter. Physician History: 34-year-old female presents to emergency department for evaluation of hypoglycemia. Upon arrival to our ED we checked patient's glucose and it was 151. Patient's monitor continues to read low. It most recently read 49 in spi te of our normal read. Patient is asymptomatic. No chest pain or shortness of breath. No nausea vomiting or diaphoresis. In comparing patient's consistent low values to our normal values we have concluded that patient's monitor is faulty. Patient asymptomatic adds to our suspicion that patient's machine is faulty. Patient otherwise at her baseline. She voices no other complaints or concerns at this time. Portions of this note were created with voice recognition technology. There may be grammatical, spelling, punctuation or sound alike errors Timing/Duration: today Severity: mild Modifying Factors: Improves With: nothing Associated Symptoms: denies symptoms Allergies/Adverse Reactions: No Known Drug Allergies Allergy (Verified 02/20/24 16:46) Home Medications: Dapagliflozin Propanediol [Farxiga] 5 mg PO DAILY 11/05/21 [History] Losartan Potassium [Cozaar] 25 mg PO DAILY 11/05/21 [History] Metformin HCl 500 mg [Glucophage 500 MG] 500 mg PO DAILY 11/05/21 [History] Methadone HCl 5 mg PO DAILY 11/05/21 [History] Semaglutide [Ozempic] 1 mg SQ WEEKLY 11/05/21 [History] Hx Tetanus, Diphtheria Vaccination/Date Given: Yes Hx Influenza Vaccination/Date Given: No Hx Pneumococcal Vaccination/Date Given: No Travel Risk - International Travel Have you traveled outside of the country in past 3 weeks: No - Emerging Infectious Disease Are you exhibiting symptoms associated with any current EIDs: No - Review of Systems Constitutional: No Symptoms, No Fever, No Chills Eyes: No Symptoms Ears, Nose, & Throat: No Symptoms Respiratory: No Symptoms, No Cough, No Dyspnea Cardiac: No Symptoms, No Chest Pain, No Edema, No Syncope Abdominal/Gastrointestinal: No Symptoms, No Abdominal Pain, No Nausea, No Vomiting, No Diarrhea Genitourinary Symptoms: No Symptoms, No Dysuria Musculoskeletal: No Symptoms, No Back Pain, No Neck Pain Skin: No Symptoms, No Rash Neurological: No Symptoms, No Dizziness, No Focal Weakness, No Sensory Changes Psychological: No Symptoms Endocrine: No Symptoms Hematologic/Lymphatic: No Symptoms Immunological/Allergic: No Symptoms All Other Systems: Reviewed and Negative - Past Medical History Pertinent Past Medical History: Yes Neurological History: No Pertinent History ENT History: No Pertinent History Cardiac History: Hypertension Respiratory History: No Pertinent History Endocrine Medical History: Diabetes Type II Musculoskeletal History: No Pertinent History GI Medical History: GERD History: No Pertinent History Psycho-Social History: No Pertinent History Female Reproductive Disorders: No Pertinent History Other Medical History: - PATIENT REPORTS HAS BLOOD CLOT "ON STOMACH" FROM AND NOT GOING AWAY - SX WAS 3 YEARS AGO. - Past Surgical History Past Surgical History: Yes Neuro Surgical History: No Pertinent History Cardiac: No Pertinent History Respiratory: No Pertinent History Gastrointestinal: No Pertinent History Genitourinary: No Pertinent History Musculoskeletal: No Pertinent History Female Surgical History: Section Significant Family History: no pertinent family hx - Female History Hx Last Menstrual Period: 3 weeks ago Hx Now: No - Social History Smoking Status: Current every day smoker How long have you smoked: age 16 Exposure to second hand smoke: Yes Drug Use: none - Social Determinants of Health Will the patient participate in the screening: Declined to provide - Nursing Vital Signs Nursing Vital Signs: Initial Vital Signs Temperature 98.6 F 10/25/24 12:45 Pulse Rate 76 10/25/24 12:45 Respiratory Rate 18 10/25/24 12:45 Blood Pressure 132/69 10/25/24 12:45 O2 Sat by Pulse Oximetry 98 10/25/24 12:45 Pain Scale Pain Intensity 0 - Physical Exam General Appearance: no apparent distress, alert Eye Exam: PERRL/EOMI, eyes nml inspection Ears, Nose, Throat Exam: normal ENT inspection, moist mucous membranes Neck Exam: normal inspection, full range of motion Respiratory Exam: normal breath sounds, lungs clear, airway intact, No respiratory distress Cardiovascular Exam: regular rate/rhythm, normal heart sounds Gastrointestinal/Abdomen Exam: soft, normal bowel sounds, No tenderness, No mass Back Exam: normal inspection, normal range of motion, No CVA tenderness, No vertebral tenderness Extremity Exam: normal inspection, normal range of motion, pelvis stable Neurologic Exam: alert, oriented x 3, cooperative, normal mood/affect, sensation nml, No motor deficits Skin Exam: normal color, warm, dry, No rash Lymphatic Exam: No adenopathy SpO2 Interpretation: normal SpO2: 98 O2 Delivery: Room Air - Course Nursing assessment & vital signs reviewed: Yes Ordered Tests: Active Orders 24 hr Category Date Time Status POCT GLUCOSE Stat Lab 10/25/24 12:49 Completed Lab/Rad Data: Laboratory Results 10/25/24 Range/Units 12:49 POC Glucometer 151 H (74 to 106) mg/dL - Progress Progress: improved Progress Note: 34-year-old female presents to emergency department for evaluation of hypoglycemia as her monitor is declaring that she has a glucose of 50. However patient remains asymptomatic. Recheck patient's glucose in our ED is 151. Patient's monitor continues to read 49. This is likely faulty secondary to patient is asymptomatic and our monitor reads 151. Patient otherwise asymptomatic feels well. Patient states that she will have her monitor checked. Patient states she is ready for discharge. She voices no other complaints or concerns at this time. Portions of this note were created with voice recognition technology. There may be grammatical, spelling, punctuation or sound alike errors Complexity of problem addressed is moderate acute complicated. No critical care time. Complex of data reviewed and analyzed is none. No specialized testing ordered. Diagnosis made based on history and physical exam. Risk of complication and or risk of morbidity/mortality of patient management is low. Vital stable. Time spent to discharge patient is approximately 10 minutes. Plan of care established for shared decision making. No social determinants of health present to impede follow-up. Portions of this note were created with voice recognition technology. There may be grammatical, spelling, punctuation or sound alike errors 10/25/24 13:18 Counseled pt/family regarding: diagnosis, need for follow-up - Departure Departure Disposition: Home Clinical Impression: Well adult exam, Faulty glucose monitor Condition: Stable Critical Care Time: No Referrals: ANN DUKES [Primary Care Provider] - Follow up/PCP as directed Additional Instructions: Discharge/Care Plan RILEY VALENTINE was seen on 10/25/24 in the Emergency Room. The patient was counseled regarding Diagnosis,Lab results, Imaging studies, need for follow up and when to return to the Emergency Room. Prescriptions given: Discharge Note I have spoken with the patient and/or caregivers. I have explained the patient's condition, diagnosis and treatment plan based on the information available to me at this time. I have answered the patient's and/or caregiver's questions and addressed any concerns. The patient and/or caregivers have as good understanding of the patient's diagnosis, condition and treatment plan as can be expected at this point. The vital signs have been stable. The patient's condition is stable and appropriate for discharge from the emergency department. The patient will pursue further outpatient evaluation with the primary care physician or other designated or consulting physician as outlined in the discharge instructions. The patient and/or caregivers are agreeable to this plan of care and follow-up instructions have been explained in detail. The patient and/or caregivers have received these instruction. The patient/and or caregivers are aware that any significant change in condition or worsening of symptoms should prompt an immediate return to this or the closest emergency department or call 911.
[2024-10-25 13:13] VITALS: BP 124/91; PULSE 78
== END 2024-10-25 13:26 | disposition home or self-care (01) ==
LOC: ED 12:44
DX: Z03.89 Encounter for observation for other suspected diseases and conditions ruled out (principal); E11.9 Type 2 diabetes mellitus without complications; I10 Essential (primary) hypertension; Z79.84 Long term (current) use of oral hypoglycemic drugs; Z79.85 Long-term (current) use of injectable non-insulin antidiabetic drugs; Z79.899 Other long term (current) drug therapy; Z72.0 Tobacco use
CPT/HCPCS: 82947; 99282; 99283

== ENCOUNTER 2025-04-06 16:09 | Emergency (ER) | payer OTHER ==
[2025-04-06 16:26] VITALS: TEMP 98.7; O2SAT 99
--- NOTE | 2025-04-06 16:32 | ERPHSYRPT ---
- History of Present Illness Time Seen by Provider: 04/06/25 16:17 Historian: patient Exam Limitations: no limitations Patient Subjective Stated Complaint: sick last 2-3 weeks, feeling pressure in stomach, back, chest, x 2 weeks, patient has a nonproductive cough, patient was on antibitoic zpack and finished friday, one more day left of prednisone 10 mg Triage Nursing Assessment: patient presents to ed via wheelchair, patient alert and oriented x 4, skin n/w/d, patient has rhonchi throughout all lewis, patient denies being short of breath at this time Physician History: 35-year-old female presents emergency room with chest wall tightness patient reports she is on day 3 of 5 of her treatments for antibiotics she is got 2 more days left of steroids been coughing has any shortness of breath does report some chest wall pain when she takes a deep inspiration when she is coughing denies any sick contacts tolerating p.o. intake denies any nausea vomiting diarrhea now in ED for further eval Timing/Duration: week(s) (2) Activities at Onset: none Location: central Chest Pain Radiation: no radiation Severity of Pain-Max: mild Severity of Pain-Current: mild Modifying Factors: Improves With: nothing Associated Symptoms: cough, No vomiting, No palpitations, No shortness of breath Aspirin Treatment Today: no aspirin today Allergies/Adverse Reactions: No Known Drug Allergies Allergy (Verified 04/06/25 16:17) Home Medications: Dapagliflozin Propanediol [Farxiga] 5 mg PO DAILY 11/05/21 [History] Losartan Potassium [Cozaar] 25 mg PO DAILY 11/05/21 [History] Metformin HCl 500 mg [Glucophage 500 MG] 500 mg PO DAILY 11/05/21 [History] Methadone HCl 5 mg PO DAILY 11/05/21 [History] Semaglutide [Ozempic] 1 mg SQ WEEKLY 11/05/21 [History] Hx Tetanus, Diphtheria Vaccination/Date Given: Yes Hx Influenza Vaccination/Date Given: No Hx Pneumococcal Vaccination/Date Given: No Travel Risk - International Travel Have you traveled outside of the country in past 3 weeks: No - Emerging Infectious Disease Are you exhibiting symptoms associated with any current EIDs: No - Review of Systems Constitutional: No Fever, No Chills Eyes: No Symptoms Ears, Nose, & Throat: No Symptoms Respiratory: Cough, No Dyspnea Cardiac: Chest Pain, No Edema, No Syncope Abdominal/Gastrointestinal: No Abdominal Pain, No Nausea, No Vomiting, No Diarrhea Genitourinary Symptoms: No Dysuria Musculoskeletal: No Back Pain, No Neck Pain Skin: No Rash Neurological: No Dizziness, No Focal Weakness, No Sensory Changes Psychological: No Symptoms Endocrine: No Symptoms All Other Systems: Reviewed and Negative - Past Medical History Pertinent Past Medical History: Yes Neurological History: No Pertinent History ENT History: No Pertinent History Cardiac History: Hypertension Respiratory History: No Pertinent History Endocrine Medical History: Diabetes Type II Musculoskeletal History: No Pertinent History GI Medical History: GERD History: No Pertinent History Psycho-Social History: No Pertinent History Female Reproductive Disorders: No Pertinent History Other Medical History: - PATIENT REPORTS HAS BLOOD CLOT "ON STOMACH" FROM AND NOT GOING AWAY - SX WAS 3 YEARS AGO. - Past Surgical History Past Surgical History: Yes Neuro Surgical History: No Pertinent History Cardiac: No Pertinent History Respiratory: No Pertinent History Gastrointestinal: Cholecystectomy Genitourinary: No Pertinent History Musculoskeletal: No Pertinent History Female Surgical History: Section Significant Family History: no pertinent family hx - Female History Hx Last Menstrual Period: 3 weeks ago Hx Now: No - Social History Smoking Status: Current every day smoker Exposure to second hand smoke: Yes Drug Use: none - Social Determinants of Health Will the patient participate in the screening: Yes Do you worry about a steady place to live?: No Do you have any problems with any of the following?: No known problems In the past 12 months,have you had to go without utilities?: No Transportation Issues: No Has anyone in your support network made you feel unsafe?: No Have you or anyone in your house had to go w/o enough food: No - Nursing Vital Signs Nursing Vital Signs: Initial Vital Signs Temperature 98.7 F 04/06/25 16:10 Pulse Rate 83 04/06/25 16:10 Respiratory Rate 20 04/06/25 16:10 Blood Pressure 127/63 04/06/25 16:10 O2 Sat by Pulse Oximetry 99 04/06/25 16:10 Pain Scale Pain Intensity 2 - Physical Exam General Appearance: no apparent distress, alert Eye Exam: PERRL/EOMI, eyes nml inspection Ears, Nose, Throat Exam: normal ENT inspection, moist mucous membranes Neck Exam: normal inspection, non-tender, supple, full range of motion Respiratory Exam: normal breath sounds, lungs clear, No respiratory distress Cardiovascular Exam: regular rate/rhythm, normal heart sounds Gastrointestinal/Abdomen Exam: soft, No tenderness, No mass Back Exam: normal inspection, No CVA tenderness, No vertebral tenderness Extremity Exam: normal inspection, normal range of motion Neurologic Exam: alert, oriented x 3, cooperative, normal mood/affect, sensation nml, No motor deficits Skin Exam: normal color, warm, dry SpO2 Interpretation: normal SpO2: 99 - Course Nursing assessment & vital signs reviewed: Yes EKG Interpreted by Me: RATE (rate 81), Sinus Rhythm, Non-specific ST Changes, Other Ordered Tests: Active Orders 24 hr Category Date Time Status Hadoop Architect STAT Care 04/06/25 16:31 Completed EKG-ER Only STAT Care 04/06/25 16:31 Completed IV Insertion STAT Care 04/06/25 16:31 Completed Pulse Oximetry (ED) STAT Care 04/06/25 16:31 Completed CHEST 1 VIEW (PORTABLE) Stat Exams 04/06/25 16:31 Completed CBC W DIFF Stat Lab 04/06/25 16:37 Completed CK-Creatinine Phosphokinase Stat Lab 04/06/25 16:37 Completed CMP Stat Lab 04/06/25 16:37 Completed D-DIMER QUANTITATIVE Stat Lab 04/06/25 16:37 Completed POCT GLUCOSE Stat Lab 04/06/25 16:45 Completed TROPONIN Stat Lab 04/06/25 16:37 Completed Lab/Rad Data: Laboratory Result Diagrams 04/06/25 16:37 04/06/25 16:37 Laboratory Results 04/06/25 04/06/25 04/06/25 Range/Units 16:45 16:37 16:37 WBC (3.98-10.04) x10^3/uL RBC (3.93-5.22) x10^6/uL Hgb (11.2-15.7) g/dL Hct (34.1-44.9) % MCV (79.4-94.8) fL MCH (25.6-32.2) pg MCHC (32.2-35.5) g/dL RDW (11.7-14.4) % Plt Count (182-369) x10^3/uL MPV (9.4-12.3) fL Gran % (34.0-71.1) % Immature Gran % (Auto) (0.001-0.429) % Nucleat RBC Rel Count (0.00-0.2) % Eos # (Auto) (0.04-0.36) x10^3/uL Immature Gran # (Auto) (0.001-0.031) x10^3u/L Absolute Lymphs (auto) (1.18-3.74) x10^3/uL Absolute Monos (auto) (0.24-0.86) x10^3/uL Absolute Nucleated RBC (0.00-0.012) x10^3u/L Lymphocytes % (19.3-51.7) % Monocytes % (4.7-12.5) % Eosinophils % (0.7-5.8) % Basophils % (0.1-1.2) % Absolute Granulocytes (1.56-6.13) x10^3/uL Basophils # (0.01-0.08) x10^3/uL D-Dimer < 0.19 (0.0-0.50) mg/L Sodium 139 (135-145) mmol/L Potassium 3.8 (3.5-5.1) mmol/L Chloride 104 (98-107) mmol/L Carbon Dioxide 23 (22-30) mmol/L Anion Gap 15.6 H (5-15) MEQ/L BUN 13 (7-17) mg/dL Creatinine 1.01 (0.52-1.04) mg/dL Estimated GFR 74.5 ML/MIN Glucose 114 H (74-106) mg/dL POC Glucometer 106 (74 to 106) mg/dL Calcium 9.3 (8.4-10.2) mg/dL Total Bilirubin < 0.10 L (0.2-1.3) mg/dL AST 26 (14-36) U/L ALT 23 (0-35) U/L Alkaline Phosphatase 84 (38-126) U/L Creatine Kinase 125 (30-135) U/L Troponin I < 0.012 (0.000-0.033) ng/mL Serum Total Protein 8.2 (6.3-8.2) g/dL Albumin 4.6 (3.5-5.0) g/dL 04/06/25 Range/Units 16:37 WBC 10.6 H (3.98-10.04) x10^3/uL RBC 4.96 (3.93-5.22) x10^6/uL Hgb 14.4 (11.2-15.7) g/dL Hct 45.0 H (34.1-44.9) % MCV 90.7 (79.4-94.8) fL MCH 29.0 (25.6-32.2) pg MCHC 32.0 L (32.2-35.5) g/dL RDW 14.3 (11.7-14.4) % Plt Count 337 (182-369) x10^3/uL MPV 9.6 (9.4-12.3) fL Gran % 72.0 H (34.0-71.1) % Immature Gran % (Auto) 0.5 H (0.001-0.429) % Nucleat RBC Rel Count 0.0 (0.00-0.2) % Eos # (Auto) 0.05 (0.04-0.36) x10^3/uL Immature Gran # (Auto) 0.05 H (0.001-0.031) x10^3u/L Absolute Lymphs (auto) 2.43 (1.18-3.74) x10^3/uL Absolute Monos (auto) 0.39 (0.24-0.86) x10^3/uL Absolute Nucleated RBC 0.00 (0.00-0.012) x10^3u/L Lymphocytes % 22.9 (19.3-51.7) % Monocytes % 3.7 L (4.7-12.5) % Eosinophils % 0.5 L (0.7-5.8) % Basophils % 0.4 (0.1-1.2) % Absolute Granulocytes 7.67 H (1.56-6.13) x10^3/uL Basophils # 0.04 (0.01-0.08) x10^3/uL D-Dimer (0.0-0.50) mg/L Sodium (135-145) mmol/L Potassium (3.5-5.1) mmol/L Chloride (98-107) mmol/L Carbon Dioxide (22-30) mmol/L Anion Gap (5-15) MEQ/L BUN (7-17) mg/dL Creatinine (0.52-1.04) mg/dL Estimated GFR ML/MIN Glucose (74-106) mg/dL POC Glucometer (74 to 106) mg/dL Calcium (8.4-10.2) mg/dL Total Bilirubin (0.2-1.3) mg/dL AST (14-36) U/L ALT (0-35) U/L Alkaline Phosphatase (38-126) U/L Creatine Kinase (30-135) U/L Troponin I (0.000-0.033) ng/mL Serum Total Protein (6.3-8.2) g/dL Albumin (3.5-5.0) g/dL - Progress Progress: improved Progress Note: 04/06/25 16:31 She reports she was recently treated for flu and pneumonia 04/06/25 17:13 Comparison: August 22, 2023 Portable chest now demonstrates normal heart, lungs, and bony thorax. 04/06/25 17:20 Patient has 2 more days of prednisone patient will be discharged this time recommend continued her steroid treatment patient already has albuterol at home patient recommend she follow-up and return for new or worsening symptoms patient be discharged at this time - Departure Departure Disposition: Home Clinical Impression: Chest wall pain Condition: Stable Critical Care Time: No Referrals: ANN DUKES [Primary Care Provider, [facility]] - Follow up/PCP as directed Instructions: Costochondritis, Chest Pain (DC)
[2025-04-06 16:42] LABS: BASOPHIL % 0.4 % (0.1-1.2); Basophil (Absolute #) 0.04 x10^3/uL (0.01-0.08); Eosinophil (Absolute #) 0.05 x10^3/uL (0.04-0.36); Hematocrit 45.0 % (34.1-44.9); Hemoglobin 14.4 g/dL (11.2-15.7); IMMATURE GRAN # 0.05 x10^3u/L (0.001-0.031); IMMATURE GRAN % 0.5 % (0.001-0.429); Lymphocyte (Absolute #) 2.43 x10^3/uL (1.18-3.74); Mean Corpuscular Hemoglobin 29.0 pg (25.6-32.2); Mean Corpuscular Hgb Concent. 32.0 g/dL (32.2-35.5); Monocyte (Absolute #) 0.39 x10^3/uL (0.24-0.86); NUCLEATED RBC # 0.00 x10^3u/L (0.00-0.012); NUCLEATED RBC % 0.0 % (0.00-0.2); Platelet Count 337 x10^3/uL (182-369); Red Blood Count 4.96 x10^6/uL (3.93-5.22); White Blood Count 10.6 x10^3/uL (3.98-10.04)
[2025-04-06 17:08] LABS: CK-Creatinine Phosphokinase 125 U/L (30-135); Calcium 9.3 mg/dL (8.4-10.2); Carbon Dioxide 23 mmol/L (22-30); Creatinine 1 1.01 mg/dL (0.52-1.04); EST GLOMERULAR FILTRATION RATE 74.5 ML/MIN; Glucose 114 mg/dL (74-106); Potassium 3.8 mmol/L (3.5-5.1); SGOT/AST 26 U/L (14-36); SGPT/ALT 23 U/L (0-35); TROPONIN < 0.012 ng/mL (0.000-0.033); Total Protein 8.2 g/dL (6.3-8.2)
--- NOTE | 2025-04-06 17:09 | XRAY ---
Indication: Cough. Comparison: August 22, 2023 Portable chest now demonstrates normal heart, lungs, and bony thorax.
[2025-04-06 17:17] VITALS: BP 128/68; RESP 18
[2025-04-06 17:33] VITALS: PULSE 78
== END 2025-04-06 17:38 | disposition home or self-care (01) ==
LOC: ED 16:09
DX: R07.89 Other chest pain (principal); I10 Essential (primary) hypertension; E11.9 Type 2 diabetes mellitus without complications; Z79.52 Long term (current) use of systemic steroids; Z79.891 Long term (current) use of opiate analgesic; Z79.84 Long term (current) use of oral hypoglycemic drugs; Z79.85 Long-term (current) use of injectable non-insulin antidiabetic drugs; Z79.899 Other long term (current) drug therapy; Z72.0 Tobacco use

== ENCOUNTER 2025-05-13 14:58 | Emergency (ER) | payer OTHER ==
--- NOTE | 2025-05-13 15:00 | ERPHSYRPT ---
- History of Present Illness Time Seen by Provider: 05/13/25 15:00 Historian: patient, family Exam Limitations: no limitations Physician History: This is a morbidly obese 35-year-old white female patient brought in by private vehicle and is a patient of Dr. Dukes with a complaint of chest pain that has been present intermittently for 3 weeks but worsened today. Patient was treated 3 weeks ago with bronchitis and an upper respiratory infection. The pain seems to be localized in the left anterior chest but there is some radiation to the left shoulder with deep inspiration. She has not had a fever. She denies cough. Patient also noticed some numbness in the upper arms. She had a stiff neck earlier today but does not have one now. Patient has a history of morbid obesity, migraine headache, diabetes, hypertension. She has never been diagnosed with coronary artery disease. She has seen a draw frame runner in the past and they ruled that out. Timing/Duration: today, intermittent Quality: sharpness Chest Pain Radiation: no radiation Severity of Pain-Max: mild Severity of Pain-Current: none Modifying Factors: Improves With: nothing Associated Symptoms: denies symptoms Prior Chest Pain/Cardiac Workup: no prior cardiac workup Aspirin Treatment Today: 81 mg x 4, provided by ED Allergies/Adverse Reactions: No Known Drug Allergies Allergy (Verified 05/13/25 15:10) Home Medications: Dapagliflozin Propanediol [Farxiga] 5 mg PO DAILY 11/05/21 [History] Losartan Potassium [Cozaar] 25 mg PO DAILY 11/05/21 [History] Metformin HCl 500 mg [Glucophage 500 MG] 500 mg PO DAILY 11/05/21 [History] Methadone HCl 5 mg PO DAILY 11/05/21 [History] Semaglutide [Ozempic] 1 mg SQ WEEKLY 11/05/21 [History] Hx Tetanus, Diphtheria Vaccination/Date Given: Yes Hx Influenza Vaccination/Date Given: No Hx Pneumococcal Vaccination/Date Given: No Travel Risk - International Travel Have you traveled outside of the country in past 3 weeks: No - Emerging Infectious Disease Are you exhibiting symptoms associated with any current EIDs: No - Review of Systems Constitutional: No Symptoms Eyes: No Symptoms Ears, Nose, & Throat: No Symptoms Respiratory: No Symptoms Cardiac: Chest Pain Abdominal/Gastrointestinal: No Symptoms Genitourinary Symptoms: No Symptoms Musculoskeletal: No Symptoms Skin: No Symptoms Neurological: No Symptoms Psychological: No Symptoms Endocrine: No Symptoms Hematologic/Lymphatic: No Symptoms Immunological/Allergic: No Symptoms All Other Systems: Reviewed and Negative - Past Medical History Pertinent Past Medical History: Yes Neurological History: No Pertinent History ENT History: No Pertinent History Cardiac History: Hypertension Respiratory History: No Pertinent History Endocrine Medical History: Diabetes Type II Musculoskeletal History: No Pertinent History GI Medical History: GERD History: No Pertinent History Psycho-Social History: No Pertinent History Female Reproductive Disorders: No Pertinent History Other Medical History: - PATIENT REPORTS HAS BLOOD CLOT "ON STOMACH" FROM AND NOT GOING AWAY - SX WAS 3 YEARS AGO. - Past Surgical History Past Surgical History: Yes Neuro Surgical History: No Pertinent History Cardiac: No Pertinent History Respiratory: No Pertinent History Gastrointestinal: Cholecystectomy Genitourinary: No Pertinent History Musculoskeletal: No Pertinent History Female Surgical History: Section Significant Family History: no pertinent family hx - Female History Hx Last Menstrual Period: 3 weeks ago - Social History Smoking Status: Current every day smoker Exposure to second hand smoke: Yes Drug Use: none - Social Determinants of Health Will the patient participate in the screening: Yes Do you worry about a steady place to live?: No In the past 12 months,have you had to go without utilities?: No Transportation Issues: No Has anyone in your support network made you feel unsafe?: No Have you or anyone in your house had to go w/o enough food: No - Nursing Vital Signs Nursing Vital Signs: Initial Vital Signs Temperature 98.4 F 05/13/25 14:59 Pulse Rate 92 H 05/13/25 14:59 Respiratory Rate 20 05/13/25 14:59 Blood Pressure 148/91 05/13/25 14:59 O2 Sat by Pulse Oximetry 99 05/13/25 14:59 Pain Scale Pain Intensity 8 - Physical Exam General Appearance: no apparent distress, alert, anxiety, obese Eye Exam: PERRL/EOMI, eyes nml inspection Ears, Nose, Throat Exam: normal ENT inspection, moist mucous membranes Neck Exam: normal inspection, non-tender, supple, full range of motion Respiratory Exam: normal breath sounds, chest tenderness (Left anterior chest to palpation), lungs clear, airway intact, No respiratory distress Cardiovascular Exam: regular rate/rhythm, normal heart sounds, normal peripheral pulses Gastrointestinal/Abdomen Exam: soft, normal bowel sounds, No tenderness Pelvic Exam: not done Rectal Exam: not done Back Exam: normal inspection, normal range of motion, No CVA tenderness, No vertebral tenderness Extremity Exam: normal inspection, normal range of motion, pelvis stable Neurologic Exam: alert, oriented x 3, cooperative, victim witness administrator II-XII nml as tested, nml cerebellar function, nml station & gait, sensation nml Skin Exam: normal color, warm, decubitus Lymphatic Exam: No adenopathy SpO2 Interpretation: normal O2 Delivery: Room Air - Course Nursing assessment & vital signs reviewed: Yes EKG Interpreted by Me: RATE (79), Sinus Rhythm, NORMAL AXIS, NORMAL INTERVALS, NORMAL QRS, Non-specific ST Changes (Anterior leads only), Other (No acute ischemia on today's twelve-lead EKG. QTc is 457) Ordered Tests: Active Orders 24 hr Category Date Time Status Retail [employer] Sales Manager STAT Care 05/13/25 15:16 Active EKG-ER Only STAT Care 05/13/25 15:16 Active IV Insertion STAT Care 05/13/25 15:16 Active Pulse Oximetry (ED) STAT Care 05/13/25 15:16 Active CHEST 1 VIEW (PORTABLE) Stat Exams 05/13/25 15:51 Taken CBC W DIFF Stat Lab 05/13/25 15:15 Completed CMP Stat Lab 05/13/25 15:15 Completed D-DIMER QUANTITATIVE Stat Lab 05/13/25 15:15 Completed TROPONIN Q4H Lab 05/13/25 15:15 Completed TROPONIN Q4H Lab 05/13/25 19:30 Ordered TROPONIN Q4H Lab 05/13/25 23:30 Ordered Medication Summary Discontinued Medications Generic Name Dose Route Start Last Admin Trade Name Jaimie PRN Reason Stop Dose Admin Aspirin 324 mg 05/13/25 15:16 05/13/25 15:19 Aspirin 81 Mg Tab.Chew PO 05/13/25 15:17 324 mg STAT ONE Administration Aspirin Confirm 05/13/25 15:18 Aspirin 81 Mg Tab.Chew Administered 05/13/25 15:19 Dose 324 mg .ROUTE .STK-MED ONE Lab/Rad Data: Laboratory Result Diagrams 05/13/25 15:15 05/13/25 15:15 Laboratory Results 05/13/25 05/13/25 05/13/25 Range/Units 15:15 15:15 15:15 WBC (3.98-10.04) x10^3/uL RBC (3.93-5.22) x10^6/uL Hgb (11.2-15.7) g/dL Hct (34.1-44.9) % MCV (79.4-94.8) fL MCH (25.6-32.2) pg MCHC (32.2-35.5) g/dL RDW (11.7-14.4) % Plt Count (182-369) x10^3/uL MPV (9.4-12.3) fL Gran % (34.0-71.1) % Immature Gran % (Auto) (0.001-0.429) % Nucleat RBC Rel Count (0.00-0.2) % Eos # (Auto) (0.04-0.36) x10^3/uL Immature Gran # (Auto) (0.001-0.031) x10^3u/L Absolute Lymphs (auto) (1.18-3.74) x10^3/uL Absolute Monos (auto) (0.24-0.86) x10^3/uL Absolute Nucleated RBC (0.00-0.012) x10^3u/L Lymphocytes % (19.3-51.7) % Monocytes % (4.7-12.5) % Eosinophils % (0.7-5.8) % Basophils % (0.1-1.2) % Absolute Granulocytes (1.56-6.13) x10^3/uL Basophils # (0.01-0.08) x10^3/uL D-Dimer < 0.19 (0.0-0.50) mg/L Sodium 140 (135-145) mmol/L Potassium 4.1 (3.5-5.1) mmol/L Chloride 104 (98-107) mmol/L Carbon Dioxide 23 (22-30) mmol/L Anion Gap 16.5 H (5-15) MEQ/L BUN 11 (7-17) mg/dL Creatinine 0.95 (0.52-1.04) mg/dL Estimated GFR 80.1 ML/MIN Glucose 118 H (74-106) mg/dL Calcium 9.4 (8.4-10.2) mg/dL Total Bilirubin 0.20 (0.2-1.3) mg/dL AST 26 (14-36) U/L ALT 20 (0-35) U/L Alkaline Phosphatase 107 (38-126) U/L Troponin I < 0.012 (0.000-0.033) ng/mL Serum Total Protein 8.1 (6.3-8.2) g/dL Albumin 4.6 (3.5-5.0) g/dL 05/13/ Range/Units 15:15 WBC 7.8 (3.98-10.04) x10^3/uL RBC 5.13 (3.93-5.22) x10^6/uL Hgb 14.7 (11.2-15.7) g/dL Hct 46.7 H (34.1-44.9) % MCV 91.0 (79.4-94.8) fL MCH 28.7 (25.6-32.2) pg MCHC 31.5 L (32.2-35.5) g/dL RDW 14.2 (11.7-14.4) % Plt Count 300 (182-369) x10^3/uL MPV 10.5 (9.4-12.3) fL Gran % 71.9 H (34.0-71.1) % Immature Gran % (Auto) 0.4 (0.001-0.429) % Nucleat RBC Rel Count 0.0 (0.00-0.2) % Eos # (Auto) 0.10 (0.04-0.36) x10^3/uL Immature Gran # (Auto) 0.03 (0.001-0.031) x10^3u/L Absolute Lymphs (auto) 1.70 (1.18-3.74) x10^3/uL Absolute Monos (auto) 0.31 (0.24-0.86) x10^3/uL Absolute Nucleated RBC 0.00 (0.00-0.012) x10^3u/L Lymphocytes % 21.9 (19.3-51.7) % Monocytes % 4.0 L (4.7-12.5) % Eosinophils % 1.3 (0.7-5.8) % Basophils % 0.5 (0.1-1.2) % Absolute Granulocytes 5.60 (1.56-6.13) x10^3/uL Basophils # 0.04 (0.01-0.08) x10^3/uL D-Dimer (0.0-0.50) mg/L Sodium (135-145) mmol/L Potassium (3.5-5.1) mmol/L Chloride (98-107) mmol/L Carbon Dioxide (22-30) mmol/L Anion Gap (5-15) MEQ/L BUN (7-17) mg/dL Creatinine (0.52-1.04) mg/dL Estimated GFR ML/MIN Glucose (74-106) mg/dL Calcium (8.4-10.2) mg/dL Total Bilirubin (0.2-1.3) mg/dL AST (14-36) U/L ALT (0-35) U/L Alkaline Phosphatase (38-126) U/L Troponin I (0.000-0.033) ng/mL Serum Total Protein (6.3-8.2) g/dL Albumin (3.5-5.0) g/dL - Progress Progress: improved, re-examined Air Movement: good Progress Note: 05/13/25 15:35 My medical decision making and the assignment of moderate complexity is based on review of the patient's past medical history, reviewed patient's medication list, reviewed patient drug allergy list, history present illness and physical findings on examination. The workup in this patient includes twelve-lead EKG, IV line placement, CBC, CMP, magnesium level, troponin level, D-dimer level, and 4 baby aspirin orally. We will perform a plain chest x-ray if the D-dimer level is normal. If the D-dimer level is elevated we will proceed with a CT scan of the chest with IV contrast. Differential diagnosis includes but is not limited to anxiety/stress, musculoskeletal pain, myocardial infarction, arrhythmia, pulmonary embolus, pneumonia, electrolyte abnormalities 05/13/25 16:06 I interpreted the patient's laboratory data results. Based on laboratory data results, there are no acute, emergent medical issues. I interpreted the preliminary chest x-ray report on this patient. I see no acute cardiopulmonary processes. Today's chest x-ray was compared to similar study dated 04/06/2025. There are no changes 05/13/25 16:08 Patient has slightly less than 4 heart score. My suspicion is low of her having acute cardiac issue. Blood Culture(s) Obtained: No Antibiotics given: No Counseled pt/family regarding: lab results, diagnosis, rad results Medical Desision Making - Diagnostic Testing Diagnostic test were ordered, analyzed, and reviewed by me: Yes Radiological Interpretation: Interpreted by me - Risk of complications Low Risk: Low risk of morbidity from additional dx testing or treatment - Departure Departure Disposition: Home Clinical Impression: Nonspecific chest pain Condition: Stable Critical Care Time: No Referrals: ANN DUKES [Primary Care Provider, INTERNAL MEDICINE] - Follow up/PCP as directed Additional Instructions: Continue all your medications as prescribed. Call your primary care provider on 05/16/2025, to make arrangements for follow-up appointment for further evaluation and management.
[2025-05-13 15:04] VITALS: TEMP 98.4
[2025-05-13] MEDS ORDERED: BABY ASPIRIN 81 MG CHEW ONE (15:18)
[2025-05-13] MEDS: BABY ASPIRIN 81 MG CHEW PO ONE (15:19)
[2025-05-13 15:34] LABS: BASOPHIL % 0.5 % (0.1-1.2); Basophil (Absolute #) 0.04 x10^3/uL (0.01-0.08); Eosinophil (Absolute #) 0.10 x10^3/uL (0.04-0.36); Hematocrit 46.7 % (34.1-44.9); Hemoglobin 14.7 g/dL (11.2-15.7); IMMATURE GRAN # 0.03 x10^3u/L (0.001-0.031); IMMATURE GRAN % 0.4 % (0.001-0.429); Lymphocyte (Absolute #) 1.70 x10^3/uL (1.18-3.74); Mean Corpuscular Hemoglobin 28.7 pg (25.6-32.2); Mean Corpuscular Hgb Concent. 31.5 g/dL (32.2-35.5); Monocyte (Absolute #) 0.31 x10^3/uL (0.24-0.86); NUCLEATED RBC # 0.00 x10^3u/L (0.00-0.012); NUCLEATED RBC % 0.0 % (0.00-0.2); Platelet Count 300 x10^3/uL (182-369); Red Blood Count 5.13 x10^6/uL (3.93-5.22); White Blood Count 7.8 x10^3/uL (3.98-10.04)
[2025-05-13 15:48] LABS: Calcium 9.4 mg/dL (8.4-10.2); Carbon Dioxide 23.0 mmol/L (22-30); Creatinine 1 0.95 mg/dL (0.52-1.04); EST GLOMERULAR FILTRATION RATE 80.1 ML/MIN; Glucose 118.0 mg/dL (74-106); Potassium 4.1 mmol/L (3.5-5.1); SGOT/AST 26.0 U/L (14-36); SGPT/ALT 20.0 U/L (0-35); Total Protein 8.1 g/dL (6.3-8.2)
[2025-05-13 16:06] VITALS: BP 112/79; PULSE 67; O2SAT 97
[2025-05-13 16:09] VITALS: RESP 20
--- NOTE | 2025-05-13 21:55 | XRAY ---
Indication: Chest pain on inspiration. Comparison: April 06, 2025 Portable chest again demonstrates normal heart, lungs, and bony thorax.
== END 2025-05-13 16:25 | disposition home or self-care (01) ==
LOC: ED 14:58
DX: R07.9 Chest pain, unspecified (principal); R20.2 Paresthesia of skin; E11.9 Type 2 diabetes mellitus without complications; I10 Essential (primary) hypertension; Z79.84 Long term (current) use of oral hypoglycemic drugs; Z79.85 Long-term (current) use of injectable non-insulin antidiabetic drugs; Z79.891 Long term (current) use of opiate analgesic; Z79.899 Other long term (current) drug therapy; Z72.0 Tobacco use